=== PATIENT | female | born 1970 | race African-American/Black ===

== ENCOUNTER 2016-08-24 04:16 | Inpatient (IN) | payer OTHER ==
--- NOTE | ~2016-08-24 | DS ---
Unit #: [id number] #: [id number] Patient: MINA AGUILAR [id number] [facility] [address] [place] [address] [id number] I MR#: [id number] NAME: MINA AGUILAR ROOM: [facility] Age: 46 Sex: F Admission Date: 08/24/2016 : 1970 Discharge Date: 08/27/2016 Attending Physician: Marco Torres M.D. Primary Care Physician: Shama Ramires A.P.R.N. DISCHARGE SUMMARY REASON FOR ADMISSION The patient is a 46-year-old , white female, admitted to the [facility] unit with a history of alcohol and crack cocaine abuse. HOSPITAL COURSE The patient was admitted to the [facility] unit and placed on routine detoxification protocol for alcohol. Her stay in the hospital was a fairly uneventful one. She actively participated within the therapeutic milieu and by 08/27/2016 was requesting discharge and it was so ordered. FINAL DIAGNOSES Cocaine use disorder, alcohol use disorder, osteoarthritis. DISPOSITION ON DISCHARGE The patient is discharged on the following medications; Motrin 800 mg t.i.d. p.r.n. pain. DISCHARGE INSTRUCTIONS No dietary or physical restrictions were placed on the patient at the time of discharge. FOLLOWUP She will follow in the chemical dependency intensive outpatient program provided by this facility. PROGNOSIS Her prognosis is considered fair. Dictated by... Marco Torres M.D. CB/simeon TD: 08/27/2016 23:45 JOB #: [id number] Unit #: [id number] #: [id number] Patient: MINA AGUILAR DISCHARGE SUMMARY Page 1 of 1 X Marco Torres MD X DISCHARGE SUMMARY
--- NOTE | ~2016-08-24 | HP ---
Unit #: [id number] #: [id number] Patient: MINA AGUILAR [id number] [facility] [address] [place] [address] [id number] I MR#: [id number] NAME: MINA AGUILAR ROOM: [facility] Age: 46 Sex: F Admission Date: 08/24/2016 : 1970 Attending Physician: Marco Torres M.D. Admitting Physician: Marco Torres M.D. Primary Care Physician: Shama Ramires A.P.R.N. HISTORY AND PHYSICAL HISTORY OF PRESENT ILLNESS Mina is a 46 year old admitted to [facility] because of her polysubstance abuse which includes alcohol and crack cocaine. PAST MEDICAL HISTORY Long history of polysubstance abuse. PAST SURGICAL HISTORY Tubal ligation. ALLERGIES Sulfa (rash). SOCIAL HISTORY Smokes less than 1/2 pack per day. Drinks alcohol frequently to excess and has a history of crack cocaine use. She denies any IV drugs. FAMILY HISTORY Medically noncontributory. REVIEW OF SYSTEMS CONSTITUTIONAL: No fever or chills. HEENT: Denies any sore throat, ear pain or runny nose. CARDIOVASCULAR: Denies chest pain, irregular heart rhythm or palpitations. CHEST: Denies shortness of breath or cough. No hemoptysis. GASTROINTESTINAL: Denies nausea, vomiting, diarrhea or chronic constipation. ENDOCRINE: Denies history of increased thirst or urination. No recent significant weight loss or gain. GENITOURINARY: Denies dysuria, frequency, or hematuria. SKIN: Denies any rashes. HEMATOLOGIC: Denies history of increased bleeding or bruising. MUSCULOSKELETAL: Denies any hot, swollen joints. No generalized muscle pain. NEUROLOGIC: Denies problems with vision or speech. No frequent, severe headaches. No numbness, tingling or weakness in any extremities. Denies loss of bladder or bowel control. CURRENT MEDICATIONS Detox protocol. PHYSICAL EXAMINATION GENERAL: Alert, well-nourished, in no apparent distress. Unit #: [id number] #: [id number] Patient: MINA AGUILAR VITAL SIGNS: Blood pressure 100/64, heart rate 80, respirations 16, temperature 98.6. WEIGHT: 159. HEIGHT: 6 feet 0 inches. SKIN: Warm and dry without rash or lesion. HEENT: Normocephalic. TMs not viewed. Oral and nasal passages clear. Conjunctivae clear. PERRLA. EOMs intact. NECK: Supple without lymphadenopathy or thyromegaly. HEART: Regular rate and rhythm without murmur. LUNGS: Clear. ABDOMEN: Soft, nontender. : Not done. EXTREMITIES: No evidence of cyanosis, clubbing or edema. Moves all without focal deficit. NEUROLOGICAL: Grossly within normal limits. Cranial Nerves: II: Visual crum are intact. III, IV AND : Extraocular movements are intact. Pupils are equal, round and reactive to light. V: Facial sensation is grossly normal. VII: Facial movements and expression are normal. VIII: Auditory acuity grossly intact. IX, X: Uvula is midline. Phonation is normal. XI: Patient shrugs shoulders and turns head normally. XII: Tongue protrudes in the midline. Sensory and Motor Function: Sensory and motor sensation is grossly normal. Motor: moves all extremities well. Coordination: Gait is normal. Deep Tendon Reflexes: Intact. IMPRESSION Psychiatric admission. RECOMMENDATIONS PSYCHIATRIC: Per psychiatrist. MEDICAL: See no contraindications to participate in facility's activities. MEDICAL PROGNOSIS Good. MEDICAL CONDITION Stable. Dictated by... Gurjit PeñalozaAKarsten. for Mingo Carroll/arden TD: 08/24/2016 16:23 JOB #: [id number] Unit #: [id number] #: [id number] Patient: MINA AGUILAR HISTORY AND PHYSICAL Page 1 of 1 X Stephanie Cartwright HISTORY AND PHYSICAL
--- NOTE | ~2016-08-24 | PA ---
Unit #: [id number] #: [id number] Patient: MINA AGUILAR [id number] [facility] [address] [place] [address] [id number] I MR#: [id number] NAME: MINA AGUILAR ROOM: [facility] Age: 46 Sex: F Admission Date: 08/24/2016 : 1970 Date of Assessment: 08/24/2016 Attending Physician: Marco Torres M.D. Admitting Physician: Marco Torres M.D. Primary Care Physician: Shama Ramires A.P.R.N. PSYCHIATRIC ASSESSMENT IDENTIFYING INFORMATION The patient is a 46-year-old female admitted to the [address] [place] [address] with suicidal ideation, increased abuse of alcohol and crack cocaine. INFORMANT(S) Patient. RELIABILITY Good. CHIEF COMPLAINT Crack cocaine and alcohol. HISTORY OF PRESENT ILLNESS The patient is a 46-year-old female who was admitted to the [address] [place] [address] after presenting to this facility voicing positive suicidal ideation. The patient reports that she was "on her way to the bridge." She reports that she is unhappy with her current living situation. 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 The patient reports a previous psychiatric hospitalization at this facility in 2010 under similar circumstances. The patient reports that her mood has worsened considerably since her 20-year-old son was killed in a dispute over a dice game at the age of 20 in 2013. The patient continues to endorse positive suicidal ideation. She has been on Depakote in the past but states that it made her feel as though she was "going in slow motion." She is currently under no psychiatric treatment. PAST PSYCHIATRIC HISTORY As above. FAMILY HISTORY Noncontributory. SOCIAL HISTORY The patient currently lives alone. She is not employed and does not work outside the home. 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 MEDICAL HISTORY Noncontributory. MEDICATION HISTORY Unit #: [id number] #: [id number] Patient: MINA AGUILAR None. ALLERGIES Sulfa. SUBSTANCE ABUSE HISTORY As noted previously. MENTAL STATUS EXAM At this time reveals the patient to be a well-developed, well-nourished white female appearing her stated age. She is in no apparent physical distress at the time of the examination. She is awake, alert, oriented in all spheres. Her mood is mildly dysphoric. Her affect constricted. Speech is generally relevant and coherent. There are no gross deficits in memory or cognition noted. Intelligence is judged to be in the average range based on fund of knowledge. The patient is cooperative throughout the interview. She is currently endorsing positive suicidal ideation. She denies homicidal ideation. She denies any psychotic symptoms. Her judgement and insight appear to be intact. ASSETS AND LIABILITIES Patient's assets, motivation for change. Liabilities, lack of resources. ADMITTING DIAGNOSES 1. Alcohol use disorder. 2. Cocaine use disorder. 3. Dysthymic disorder. PSYCHIATRIC PLAN/TREATMENT GOALS The patient remains hospitalized for safety and stabilization. Suicide precautions remain in place and we will watch for signs of alcohol withdrawal with routine detoxification protocol in place at this point. Any decisions regarding pharmacotherapy will be held pending completion of the patient's detox and perhaps even longer as he looks to be a good candidate for participation in the intensive outpatient program following discharge. ESTIMATED LENGTH OF STAY Three to five days. Dictated by... Marco Torres M.D. LUKASZ/arden TD: 08/24/2016 15:01 JOB #: [id number] Unit #: [id number] #: [id number] Patient: AGUILARSATHYAMINA PSYCHIATRIC ASSESSMENT Page 1 of 1 X Marco Torres MD X PSYCHIATRIC ASSESSMENT
--- NOTE | ~2016-08-24 | PN ---
Unit #: [id number] #: [id number] Patient: MINA AGUILAR [id number] [facility] [address] [place] [address] [id number] I MR#: [id number] NAME: MINA AGUILAR ROOM: [facility] Age: 46 Sex: F Admission Date: 08/24/2016 : 1970 Attending Physician: Marco Torres M.D. Admitting Physician: Marco Torres M.D. Primary Care Physician: Lizzy Rutherford PROGRESS NOTES DATE 08/26/2016 DISCUSSION The patient is in a bit brighter spirits today and seems more invested in maintenance of sobriety. I have spoken with her regarding meeting with her addiction social worker tomorrow with plans to formulate a post discharge treatment strategy. The patient was agreeable. She continues to exhibit symptoms of alcohol withdrawal having required Ativan at 8 a.m. this morning. Dictated by... Marco Torres M.D. CB/kendal TD: 08/27/2016 01:06 JOB #: [id number] [facility] PROGRESS NOTES Page 1 of 1 X Marco Torres MD X PROGRESS NOTE
--- NOTE | ~2016-08-24 | PN ---
Unit #: [id number] #: [id number] Patient: MINA AGUILAR [id number] [facility] [address] [place] [address] [id number] I MR#: [id number] NAME: MINA AGUILAR ROOM: [facility] Age: 46 Sex: F Admission Date: 08/24/2016 : 1970 Attending Physician: Marco Torres M.D. Admitting Physician: Marco Torres M.D. Primary Care Physician: Lizzy Rutherford PROGRESS NOTES DATE 08/25/2016 DISCUSSION The patient is resting comfortably today and cannot be aroused for further interview. Staff reports no management issues but reports that the patient remains seclusive to room and continue to endorse positive suicidal ideation. Dictated by... Marco Torres M.D. CB/arden TD: 08/25/2016 15:38 JOB #: [id number] [facility] PROGRESS NOTES Page 1 of 1 X Marco Torres MD X PROGRESS NOTE
[~2016-08-24 04:16] MED LIST: E-MYCIN250 MG PO; IBUPROFEN800 MG PO; ZYRTEC10 M2 PO
[2016-08-25 11:56] LABS: BASOPHIL% 1.2 % (0-2.5); EOSINOPHIL# 0.1 X10e3 (0-0.7); EOSINOPHIL% 6.1 % (0.0-7.0); HEMATOCRIT 41.4 % (35.0-45.0); HEMOGLOBIN 13.1 gm/dL (12.0-16.0); LYMPHOCYTE# 1.1 X10e3 (1.0-3.5); LYMPHOCYTE% 45.7 % (17.0-45.0); MEAN CELL VOLUME 92.2 FL (83-96); MEAN CORPUSCULAR HEMOGLOBIN 29.2 PG (28-34); MEAN CORPUSCULAR HGB CONC 31.7 g/dL (30-36); MEAN PLATELET VOLUME 9.5 FL (6.5-11.5); MONOCYTE# 0.4 X10e3 (0-1.0); MONOCYTE% 17.8 % (3.0-12.0); NEUTROPHIL# 0.7 X10e3 (1.5-7.1); NEUTROPHIL% 29.2 % (40-75); PLATELET COUNT 226 X10e3 (140-420); RED BLOOD COUNT 4.49 X10e (3.90-5.30); RED CELL DISTRIBUTION WIDTH 13.3 % (11.0-15.5); WHITE BLOOD COUNT 2.4 X10e3 (4.0-10.5)
[2016-08-25 11:59] LABS: DIFF IND YES
[2016-08-25 12:09] LABS: THYROID STIMULATING HORMONE 1.26 uIU/ml (0.34-5.60)
[2016-08-25 12:13] LABS: ALBUMIN SERUM 3.4 g/dL (3.5-5.0); BILIRUBIN,TOTAL 0.3 mg/dL (0.2-2.0); CALCIUM SERUM 9.1 mg/dL (8.4-10.2); GLOM FILT RATE Estimated 77.7 mL/min (>60); POTASSIUM 4.3 mmol/L (3.5-5.1); PROTEIN TOTAL SERUM 6.4 g/dL (6.0-8.3)
[2016-08-25 12:17] LABS: FREE THYROXIN (T4) 0.71 ng/dL (0.58-1.64)
[2016-08-25 13:20] LABS: ANISOCYTOSIS SL; PLATELET ESTIMATE NORMAL (NORMAL)
[2016-08-26 11:32] LABS: URINE APPEARANCE TURBID; URINE BILIRUBIN NEG (NEG); URINE BLOOD NEG (NEG); URINE COLOR DK YELLOW; URINE GLUCOSE NEG (NEG); URINE KETONE NEG (NEG); URINE LEUKOCYTE ESTERASE NEG (NEG); URINE NITRATE NEG (NEG); URINE PROTEIN NEG (NEG); URINE SPECIFIC GRAVITY 1.026 (1.003-1.035); URINE UROBILINOGEN 0.2 MG/DL (NEG)
[2016-08-26 12:11] LABS: AMPHETAMINE NEG (NEG); BARBITURATES NEG (NEG); BENZODIAZEPINES POS (NEG); COCAINE POS (NEG); MARIJUANA NEG (NEG); OPIATES NEG (NEG); TRICYCLIC ANTIDEPRESSANTS NEG (NEG); U METHADONE NEG (NEG)
== END 2016-08-27 15:30 | disposition home or self-care (01) | DRG 897 ==
LOC: P1E 04:16
PROVIDERS: Specialist
PROC: HZ2ZZZZ Detoxification Services for Substance Abuse Treatment (ICD-10-PCS; principal; 2016-08-24)
DX: F10.10 Alcohol abuse, uncomplicated (principal); F14.10 Cocaine abuse, uncomplicated; R45.851 Suicidal ideations; F34.1 Dysthymic disorder; F17.210 Nicotine dependence, cigarettes, uncomplicated; Z98.51 Tubal ligation status; M19.90 Unspecified osteoarthritis, unspecified site
CPT/HCPCS: 80053; 80307; 81003; 84439; 84443; 84703; 85025; 86592